=== PATIENT | female | born 1995 | race Two or more races ===

== ENCOUNTER 2017-03-23 12:34 | Emergency (ER) | payer SELFPAY ==
--- NOTE | 2017-03-23 12:48 | ED PDOC ---
Arrival/HPI - General Time Seen by Provider: 03/23/17 12:47 Historian: Patient - History of Present Illness Narrative History of Present Illness (Text): 03/23/17 12:48 21 y/o female, no significant pmh, nkda, c/o
[2017-03-23 12:53] VITALS: BP 106/67; PULSE 80; RESP 16; TEMP 98.8; O2SAT 100
== END 2017-03-23 13:23 | disposition left against medical advice (07) ==
LOC: ED 12:34
DX: Z02.89 Encounter for other administrative examinations (principal); O26.851 Spotting complicating pregnancy, first trimester

== ENCOUNTER 2018-05-21 13:17 | Emergency (ER) | payer BC, OTHER ==
[2018-05-21 13:28] VITALS: BMI 19.8
[2018-05-21 13:32] VITALS: RESP 18
--- NOTE | 2018-05-21 15:30 | ED PDOC ---
Arrival/HPI - General Chief Complaint: Allergic Reaction Time Seen by Provider: 05/21/18 13:37 Historian: Patient - History of Present Illness Narrative History of Present Illness (Text): 05/21/18 14:17 A 22 year old female with no past medical history presents to the emergency department complaining of an allergic reaction from earlier today. Patient admits she is currently sexually active and is not 100% compliant with prote ction Patient reports experiencing tingling, pain upon swallowing, body aches, and headache. Patient denies any fever, chills, shortness of breath, chest pain, diarrhea, nausea, vomiting, urinary symptoms, dizziness, or any other complaints. No PMD Time/Duration: Other (earlier today) Symptom Onset: Gradual Symptom Course: Unchanged Activities at Onset: Light Context: Home Past Medical History - Provider Review Nursing Documentation Reviewed: Yes - Infectious Disease Hx of Infectious Diseases: None - Psychiatric Hx Substance Use: No - Anesthesia Hx Anesthesia: No Family/Social History - Physician Review Nursing Documentation Reviewed: Yes Family/Social History: No Known Family HX Smoking Status: Unknown If Ever Smoked Hx Alcohol Use: No Hx Substance Use: No Allergies/Home Meds Allergies/Adverse Reactions: Allergies No Known Allergies Allergy (Verified 05/21/18 13:32) Review of Systems - Physician Review All systems were reviewed & negative as marked: Yes - Review of Systems Constitutional: absent: Fevers, Other (chills) ENT: Other (pain upon swallowing) Respiratory: absent: SOB Cardiovascular: absent: Chest Pain Gastrointestinal: absent: Diarrhea, Nausea, Vomiting Genitourinary Female: absent: Urine Output Changes Musculoskeletal: Myalgias Neurological: Headache, Other (tingling). absent: Dizziness Physical Exam - Physical Exam Narrative Physical Exam (Text): 05/21/18 14:17 Gen: VS reviewed, alert, well developed, well nourished, nontoxic, mild distress. ENT: increased redness to posterior pharynx, mild swollen tonsils, scant exudates on bilateral tonsils but worse on right, no cervical adenopathy, no other oral lesions noted. Mouth: localized edematous vesicular rash on left upper lip. Eye: EOMI, PERRL. Neck: no JVD, supple, no adenopathy. CV: regular rate, regular rhythm, no rubs, no murmur, no gallops, S1, S2, pulses equal and strong. Pulm: no distress, clear to auscultation, no wheeze, no rhonchi, breath sounds equal, no rales. Abd: soft, nontender, no guarding, no rebound, no rigidity, normal bowel sounds. Ext: no edema. Skin: good color, no rash, no cyanosis. Psych: responds appropriately to questions, normal affect. Neuro: oriented x 3, CN2-12 intact grossly, motor intact, sensation intact. Vital Signs Reviewed: Yes Vital Signs Temp Pulse Resp BP Pulse Ox 05/21/18 13:28 100.4 F H 96 H 18 121/83 98 Temperature: Febrile Blood Pressure: Normal Pulse: Tachycardic Respiratory Rate: Normal Appearance: Positive for: Well-Appearing, Non-Toxic Medical Decision Making ED Course and Treatment: 05/21/18 14:17 Impression: A 22 year old female presents to the emergency department complaining of an allergic reaction. Plan: -- HIV test -- Tylenol -- Throat culture -- Reassess and disposition Prior Visits: Notes and results from previous visits were reviewed. Progress Notes: 05/21/18 17:28 patient was seen primarily for left upper lip lesion clinically consistent with herpes. secondarily, patient noted to have an exudative pharyngitis. strep negative, likely viral pharyngitis. patient is aware of pending HIV test and w ill follow up on the results herself. - Medication Orders Current Medication Orders: Discontinued Medications Acetaminophen (Tylenol 325mg Tab) 975 mg PO STAT STA Stop: 05/21/18 14:23 Last Admin: 05/21/18 14:35 Dose: 975 mg CHELLE Pain/Vitals Document 05/21/18 14:35 ALEX (Rec: 05/21/18 14:36 [place] [facility] [facility] [place] Pain Reassessment Is This A Pain ReAssessment? No Sleep Is patient sleeping during reassessment? No Presence of Pain Presence of Pain Yes Location Pain Location Body Site lip - Scribe Statement The provider has reviewed the documentation as recorded by the Clotilde Oliver All medical record entries made by the Lizandroibkate were at my direction and personally dictated by me. I have reviewed the chart and agree that the record accurately reflects my personal performance of the history, physical exam, medical decision making, and the department course for this patient. I have also personally directed, reviewed, and agree with the discharge instructions and disposition. Disposition/Present on Arrival - Present on Arrival Any Indicators Present on Arrival: No History of DVT/PE: No History of Uncontrolled Diabetes: No Urinary Catheter: No History of Decub. Ulcer: No History Surgical Site Infection Following: None - Disposition Have Diagnosis and Disposition been Completed?: Yes Diagnosis: Herpes simplex, Viral pharyngitis Disposition: HOME/ ROUTINE Disposition Time: 17:31 Patient Plan: Discharge Condition: STABLE Discharge Instructions (ExitCare): Cold Sores (Oral Herpes), Viral Pharyngitis (DC) Additional Instructions: return for any new or worsenings symptoms. follow up with your doctor for comprehensive testing for STD's. Prescriptions: RX: Acyclovir 400 mg PO TID #21 tablet RX: Ibuprofen [Motrin Tab] 600 mg PO QID #42 tab RX: Lidocaine 2% Viscous 15 ml MM Q4H #1 bottle Referrals: FAMILY PROVIDER,NO [Primary Care Provider] - Follow up with primary Forms: [facility] ([place]), WORK NOTE
[2018-05-21 17:49] VITALS: BP 103/68; PULSE 71; TEMP 99.2; O2SAT 97
== END 2018-05-21 17:54 | disposition home or self-care (01) ==
LOC: ED 13:17
DX: J02.9 Acute pharyngitis, unspecified (principal); B00.9 Herpesviral infection, unspecified